=== PATIENT | male | born 1985 ===

== ENCOUNTER 2017-12-08 13:46 | Inpatient (IN) | payer OTHER ==
[2017-12-08 14:43] LABS: URINE BILIRUBIN NEGATIVE (NEGATIVE); URINE BLOOD NEGATIVE (NEGATIVE); URINE CLARITY Clear (Clear); URINE COLOR Yellow (YELLOW); URINE GLUCOSE (UA) NORMAL (Normal); URINE LEUKOCYTE ESTERASE NEG Leu/uL (Negative); URINE PROTEIN NEGATIVE (NEGATIVE); URINE UROBILINOGEN NORMAL mg/dL (0.2-1.0)
[2017-12-08] MEDS ORDERED: Lidocaine 122 MG in Sodium Chloride 0.9% 100 ML IV STA (15:18)
[2017-12-08] MEDS ORDERED: Sodium Chloride 0.9% 1,000 ML IV STA (15:18)
[2017-12-08] MEDS ORDERED: Sodium Chloride 0.9% 1,000 ML IV ONE (15:18)
--- NOTE | 2017-12-08 15:18 | C.PDOC ---
History Of Present Illness 32yo male, comes to ER for evaluation of a new onset right flank and right groin pain x 4 hours. Patient states the pain was initially frontal and now radiates backwards. He also reports associated urinary urgency, hematuria and nausea (now resolved). Patient denies any known history of kidney stones. He took Tylenol prior to arrival with minimal relief. Otherwise, no fever, chills, and offers no other medical complaints. PSH NEG Time Seen by Provider: 12/08/17 15:05 Chief Complaint (Nursing): Male Genitourinary History Per: Patient History/Exam Limitations: no limitations Onset/Duration Of Symptoms: Hrs Current Symptoms Are (Timing): Still Present Quality Of Discomfort: "Pain" Associated Symptoms: Urinary Symptoms Additional History Per: Patient Past Medical History Reviewed: Historical Data, Nursing Documentation, Vital Signs Vital Signs: Last Vital Signs Temp 97.7 F 12/08/17 13:52 Pulse 85 12/08/17 16:07 Resp 22 12/08/17 16:07 BP 105/61 12/08/17 16:07 Pulse Ox 100 12/08/17 17:12 - Medical History PMH: Anxiety Surgical History: No Surg Hx Family History: States: No Known Family Hx - Social History Hx Alcohol Use: No Hx Substance Use: No - Immunization History Hx Tetanus Toxoid Vaccination: Yes Hx Influenza Vaccination: No Hx Pneumococcal Vaccination: No Review Of Systems Except As Marked, All Systems Reviewed And Found Negative. Constitutional: Negative for: Fever, Chills Gastrointestinal: Positive for: Other (right flank pain). Negative for: Nausea , Abdominal Pain Genitourinary: Positive for: Frequency, Hematuria Musculoskeletal: Positive for: Back Pain (right sided lower back) Physical Exam - Physical Exam Appears: Non-toxic, No Acute Distress Skin: Normal Color, Warm, Dry Head: Atraumatic, Normacephalic Eye(s): bilateral: Normal Inspection Chest: Symmetrical Cardiovascular: Rhythm Regular, No Murmur Respiratory: Normal Breath Sounds, No Rales, No Rhonchi, No Wheezing Gastrointestinal/Abdominal: Soft, No Tenderness Back: CVA Tenderness (right sided), No Vertebral Tenderness, No Paraspinal Tenderness Extremity: Normal ROM Neurological/Psych: Oriented x3, Normal Speech, Normal Cognition, Normal Motor, Normal Sensation ED Course And Treatment - Laboratory Results Result Diagrams: 12/08/17 15:26 12/08/17 15:26 O2 Sat by Pulse Oximetry: 100 (RA) Pulse Ox Interpretation: Normal Progress Note: Labs, CT Abdomen/Pelvis ordered. Patient given IV Fluids, IV lidocaine, flomax, and toradol. Progress - Re-Evaluation Re-evaluation Note: 12/08/17 16:[address] TAVARES: +APPY, NONOBSTRUCTING RENAL STONE. 12/08/17 16:32 D/W SURG RES WILL CONSULT 12/08/17 17:12 APPEARS COMFORTABLE NAD. PENDING SURG DISPO - Data Reviewed Data Reviewed: Lab, Diagnostic imaging - Continuity of Care Discussed patient case with:: Patient Discussed pt. case with integrity consultant/specialty: Radiology Disposition Counseled Patient/Family Regarding: Studies Performed, Diagnosis - Disposition Disposition: HOSPITALIZED Disposition Time: 18:30 Condition: STABLE Forms: [facility] (Maltese) - POA Present On Arrival: None - Clinical Impression Clinical Impression: Appendicitis - Scribe Statement The provider has reviewed the documentation as recorded by the Alvina Swanson Provider Attestation: All medical record entries made by the Alvina were at my direction and personally dictated by me. I have reviewed the chart and agree that the record accurately reflects my personal performance of the history, physical exam, medical decision making, and the department course for this patient. I have also personally directed, reviewed, and agree with the discharge instructions and disposition. Decision To Admit - Pt Status Changed To: Hospital Disposition Of: Inpatient - Admit Certification Admit to Inpatient:: After my assessment, the patient will require hospitalization for at least two midnights. This is because of the severity of symptoms shown, intensity of services needed, and/or the medical risk in this patient being treated as an outpatient. - InPatient: Physician Admission Certification: I certify that this patient requires 2 or more midnights of care for the following reason:: SEE NOTE - . Bed Request Type: Regular Admitting Physician: Lyndon Lucas Patient Diagnosis: Appendicitis
[2017-12-08] MEDS ORDERED: Sodium Chloride 0.9% 2,000 ML ONE (15:30)
[2017-12-08 15:32] LABS: BASO % 0.1 % (0.0-2.0); EOS % 0.1 % (0.0-4.0); HEMOGLOBIN 15.4 g/dL (12.0-18.0); LYMPH # 1.2 K/uL (1.0-4.3); LYMPH % 9.9 % (20.0-40.0); MEAN CELL VOLUME 87.8 fL (80.0-94.0); MEAN CORPUSCULAR HEMOGLOBIN 29.3 pg (27.0-31.0); MEAN CORPUSCULAR HGB CONC 33.4 g/dL (33.0-37.0); MEAN PLATELET VOLUME 8.6 fL (7.2-11.7); MONO # 0.5 K/uL (0.0-0.8); MONO % 3.8 % (0.0-10.0); NEUT # 10.7 K/uL (1.8-7.0); NEUT % 86.1 % (50.0-75.0); NRBC % 0.2 % (0.0-2.0); PLATELET COUNT 223 K/uL (130-400); RBC 5.24 Mil/uL (4.40-5.90); RED CELL DISTRIBUTION WIDTH 12.8 % (11.5-14.5); WHITE BLOOD COUNT 12.4 K/uL (4.8-10.8)
[2017-12-08 15:45] LABS: ALB/GLOB RATIO 1.5 (1.0-2.1); ALBUMIN 4.6 g/dL (3.5-5.0); ALT/SGPT 109 U/L (21-72); AST/SGOT 167 U/L (17-59); BLOOD UREA NITROGEN 19 mg/dL (9-20); CALCIUM 9.2 mg/dl (8.6-10.4); GFR AFRICAN-AMERICAN > 60; GFR NON-AFRICAN AMERICAN > 60
[2017-12-08 16:18] LABS: BANDS 3 % (0-2); LYMPHOCYTE 10 % (20-40); MONOCYTE 3 % (0-10); NEUTROPHIL 84 % (50-75); TOTAL CELLS COUNTED 100
[2017-12-08 16:19] LABS: PLATELET ESTIMATE NORMAL (NORMAL)
--- NOTE | 2017-12-08 16:37 | CT ---
Date of service: 12/08/2017 PROCEDURE: CT abdomen pelvis. HISTORY: R FLANK PAIN COMPARISON: None. TECHNIQUE: Contiguous axial images of the abdomen and pelvis. . 2D sagittal and coronal reformats generated. This CT exam was performed using one or more of the following dose reduction techniques: Automated exposure control, adjustment of the mA and/or kV according to patient size, and/or use of iterative reconstruction technique. Radiation dose: Total exam DLP = 568.78 mGy-cm. FINDINGS: LOWER THORAX: Unremarkable. LIVER: Liver exhibits normal size measuring approximately 16 cm in CC dimension. No obvious hepatic mass or collection seen on this noncontrast study. GALLBLADDER AND BILE DUCTS: Gallbladder physiologically distended. No obvious intraluminal gallbladder calculi. PANCREAS: Pancreas appears grossly unremarkable without masses collections or calcifications. SPLEEN: Spleen exhibits normal size and attenuation pattern without mass collection or calcification. ADRENALS: Slightly nodular appearing left adrenal gland. KIDNEYS AND URETERS: There is a 3.9 mm nonobstructing calculus seen in the mid pole collecting system right kidney. No other renal calculi. BLADDER: Urinary bladder is incompletely distended. No obvious intraluminal urinary bladder calculi. REPRODUCTIVE: Unremarkable. APPENDIX: There is an apparent appendicolith at the base of the cecum apparently at ostium of the appendix with dilatation of the appendix measuring up to nearly 11 mm. Findings likely represent an early the acute appendicitis. Clinical correlation with history, physical exam and laboratory values. BOWEL: Evaluation of the bowel limited due to the lack of oral contrast. Stomach is distended with fluid and air. Visualized loops of small bowel exhibit normal contour and caliber. No evidence of acute mechanical small bowel obstruction. . Note is made of mild what appears to represent mild submucosal fatty infiltration within the throughout most of the colon. And Suggesting sequela of chronic inflammation. Clinical correlation recommended. Scattered colonic diverticulosis seen along the sigmoid colon. Made of a radiopaque density along the base of the cecum that could represent a diverticula with the debris PERITONEUM: Unremarkable. No fluid collection. No free air. Small fat containing umbilical hernia. LYMPH NODES: Unremarkable. No enlarged lymph nodes. VASCULATURE: Unremarkable. No aortic aneurysm. BONES: No fracture or destructive lesion. OTHER FINDINGS: None. IMPRESSION: Apparent appendicolith at the base of the cecum apparently at ostium of the appendix with dilatation of the appendix measuring up to nearly 11 mm. Findings most likely represent early acute appendicitis. Clinical correlation with history physical exam and laboratory values. There appears to be submucosal edema throughout the colon suggesting sequela of chronic inflammation. There are also few scattered colonic diverticula along the sigmoid colon however no radiographic evidence of acute diverticulitis. Findings discussed with Dr. Pro at approximately 4:20 p.m. with written down and read back verification. Nonobstructing calculus right kidney as described.
--- NOTE | 2017-12-08 17:04 | US ---
Date of service: 12/08/2017 HISTORY: RUQ PAIN COMPARISON: None. TECHNIQUE: Sonographic evaluation of the right upper quadrant of the abdomen. FINDINGS: LIVER: Measures 17.0 cm in length. Smooth contour however increased echotexture questionably due to fatty infiltration ; rule out other infiltrative hepatic cellular disease process. No obvious mass. No intrahepatic bile duct dilatation. GALLBLADDER: Unremarkable. No gallstones. No pericholecystic fluid collections or sonographic Scott sign COMMON BILE DUCT: Measures 4.0 mm. No stones. No dilatation. PANCREAS: Unremarkable as visualized. No mass. No ductal dilatation. RIGHT KIDNEY: Measures 8.6 x 4.7 x 5.5 cm in length. Normal echogenicity. No mass, or hydronephrosis. . There is a nonobstructing calculus midpole right kidney measuring 3 mm. AORTA: No aneurysmal dilatation. IVC: Unremarkable. OTHER FINDINGS: None . IMPRESSION: No evidence of cholelithiasis. Increased hepatic echotexture ; and questionably due to fatty infiltration however other infiltrative hepatic cellular disease process not excluded. . 3 mm nonobstructing calculus midpole right kidney.
[2017-12-08] MEDS ORDERED: Piperacillin/Tazobact 3.375 gm 100 ML IV STA (17:12)
--- NOTE | 2017-12-08 17:52 | CP.PCM.CON ---
History of Present Illness - History of Present Illness History of Present Illness: General Surgery Consult Note for Dr. Lucas CC: abdominal pain 32M with PMH of anxiety presents to [facility] with umbilical pain that shortly radiated to the RLQ. Patient states noticed generalized periumbilical discomfort that started around 9AM this morning accompanied by nausea and chills. He took peptobismol which did not help. Patient describes the abdominal pain as mild and crampy, which then progressed to diffuse abdominal pain, which further progressed to sharp, severe pain localized to the RLQ. Patient states the pain radiates to the back. Pt reports pain well controlled with toradol received in the ED. However it is aggravated with sudden movement. Pt reports normal bowel movements and flatus. Patient denies fever, chest pain, palpitations, SOB, vomiting, diarrhea, constipation, and any urinary symptoms. PMH: anxiety PSHx: none Meds: Cymbalta Hospitalizations: none Family Hx: Mother: diabetes, Father: HTN Social: denies smoking, alcohol, and drug use Review of Systems - Review of Systems All systems: reviewed and no additional remarkable complaints except - Constitutional Constitutional: Chills. absent: Fever, Headache - Cardiovascular Cardiovascular: absent: Chest Pain, Dyspnea, Dyspnea on Exertion, Edema, Palpitations - Respiratory Respiratory: absent: Cough, Dyspnea, Wheezing - Gastrointestinal Gastrointestinal: Abdominal Pain, Nausea. absent: Constipation, Diarrhea, Fecal Incontinence, Vomiting - Genitourinary Genitourinary: Flank Pain. absent: Change in Urinary Stream, Difficulty Urinating, Dysuria, Urinary Incontinence, Urinary Frequency, Urinary Hesitance - Musculoskeletal Musculoskeletal: Back Pain, Stiffness. absent: Numbness, Tingling - Neurological Neurological: absent: Dizziness, Numbness, Headaches, Sensory Deficit, Tingling - Psychiatric Psychiatric: Anxiety - Endocrine Endocrine: absent: Fatigue, Palpitations Past Patient History - Past Social History Smoking Status: Never Smoked - PSYCHIATRIC Hx Anxiety: Yes Hx Substance Use: No Meds Allergies/Adverse Reactions: Allergies Allergy/AdvReac Type Severity Reaction Status Date / Time No Known Allergies Allergy Verified 12/08/17 13:55 - Medications Medications: Current Medications Piperacillin Sod/Tazobactam Sod (Zosyn 3.375 In Ns 100ml) 100 mls @ 200 mls/hr IV STAT STA PRN Reason: Protocol Stop: 12/08/17 17:41 Physical Exam - Constitutional Appears: Non-toxic, No Acute Distress - Head Exam Head Exam: ATRAUMATIC, NORMOCEPHALIC - Eye Exam Eye Exam: EOMI, Normal appearance - Respiratory Exam Respiratory Exam: NORMAL BREATHING PATTERN. absent: Respiratory Distress - Cardiovascular Exam Cardiovascular Exam: +S1, +S2 - GI/Abdominal Exam GI & Abdominal Exam: Soft, Tenderness. absent: Distended, Firm, Guarding, Hernia, Rebound, Rigid Additional comments: +Rovsigs - Back Exam Back exam: absent: CVA tenderness (L), CVA tenderness (R), paraspinal tenderness , tenderness, vertebral tenderness - Neurological Exam Neurological exam: Alert, Oriented x3 - Psychiatric Exam Psychiatric exam: Normal Affect, Normal Mood - Skin Skin Exam: Dry, Intact, Normal Color Results - Vital Signs Recent Vital Signs: Last Vital Signs Temp 97.7 F 12/08/17 13:52 Pulse 85 12/08/17 16:07 Resp 22 12/08/17 16:07 BP 105/61 12/08/17 16:07 Pulse Ox 100 12/08/17 17:12 - Labs Result Diagrams: 12/08/17 15:26 12/08/17 15:26 Labs: Laboratory Results - last 24 hr 12/08/17 12/08/17 12/08/17 14:31 15:26 15:26 WBC 12.4 H RBC 5.24 Hgb 15.4 Hct 46.0 MCV 87.8 MCH 29.3 MCHC 33.4 RDW 12.8 Plt Count 223 MPV 8.6 Neut % (Auto) 86.1 H Lymph % (Auto) 9.9 L [place] % (Auto) 3.8 Eos % (Auto) 0.1 Baso % (Auto) 0.1 Neut # (Auto) 10.7 H Lymph # (Auto) 1.2 [place] # (Auto) 0.5 Eos # (Auto) 0.0 Baso # (Auto) 0.0 Neutrophils % (Manual) 84 H Band Neutrophils % 3 H Lymphocytes % (Manual) 10 L Monocytes % (Manual) 3 Platelet Estimate Normal RBC Morphology Normal Sodium 139 Potassium 3.9 Chloride 102 Carbon Dioxide 25 Anion Gap 15 BUN 19 Creatinine 0.9 Est GFR ( Amer) > 60 Est GFR (Non-Af Amer) > 60 Random Glucose 133 H Calcium 9.2 Total Bilirubin 0.5 AST 167 H ALT 109 H Alkaline Phosphatase 71 Total Protein 7.7 Albumin 4.6 Globulin 3.1 Albumin/Globulin Ratio 1.5 Urine Color Yellow Urine Clarity Clear Urine pH 5.0 Ur Specific [place] 1.026 Urine Protein Negative Urine Glucose (UA) Normal Urine Ketones Negative Urine Blood Negative Urine Nitrate Negative Urine Bilirubin Negative Urine Urobilinogen Normal Ur Leukocyte Esterase Neg Urine WBC (Auto) < 1 Urine RBC (Auto) 1 - Imaging and Cardiology CT scan - abdomen Status: Image reviewed by me, Report reviewed by me CT scan - pelvis Status: Image reviewed by me, Report reviewed by me Assessment & Plan - Assessment and Plan (Free Text) Assessment: 32M with abdominal pain - CT scan with 11mm appendix with appendicolith, 3.99mm nonobstructing renal calculus, scattered colonic diverticula along the sigmoid colon and submucosal edema throughout the colon - US with 3mm nonobstructing right renal calculus - Vital signs stable - WBC 12.4 Plan: -NPO -IVF -Zosyn -Toradol -OR for appendectomy tomorrow
[2017-12-08] MEDS ORDERED: Piperacillin/Tazobact 3.375 gm 100 ML IVPB ONE (18:18)
--- NOTE | 2017-12-08 18:31 | CP.PCM.HP ---
<Bert Botello - Last Filed: 12/08/17 18:29> History of Present Illness - History of Present Illness History of Present Illness: General Surgery H&P for Dr. Lucas CC: abdominal pain 32M with PMH of anxiety presents to [facility] with umbilical pain that shortly radiated to the RLQ. Patient states noticed generalized periumbilical discomfort that started around 9AM this morning accompanied by nausea and chills. He took peptobismol which did not help. Patient describes the abdominal pain as mild and crampy, which then progressed to diffuse abdominal pain, which further progressed to sharp, severe pain localized to the RLQ. Patient states the pain radiates to the back. Pt reports pain well controlled with toradol received in the ED. However it is aggravated with sudden movement. Pt reports normal bowel movements and flatus. Patient denies fever, chest pain, palpitations, SOB, vomiting, diarrhea, constipation, and any urinary symptoms. PMH: anxiety PSHx: none Meds: Cymbalta Hospitalizations: none Family Hx: Mother: diabetes, Father: HTN Social: denies smoking, alcohol, and drug use Present on Admission - Present on Admission Any Indicators Present on Admission: No Review of Systems - Review of Systems Review of Systems: - Review of Systems All systems: reviewed and no additional remarkable complaints except - Constitutional Constitutional: Chills. absent: Fever, Headache - Cardiovascular Cardiovascular: absent: Chest Pain, Dyspnea, Dyspnea on Exertion, Edema, Palpitations - Respiratory Respiratory: absent: Cough, Dyspnea, Wheezing - Gastrointestinal Gastrointestinal: Abdominal Pain, Nausea. absent: Constipation, Diarrhea, Fecal Incontinence, Vomiting - Genitourinary Genitourinary: Flank Pain. absent: Change in Urinary Stream, Difficulty Urinating, Dysuria, Urinary Incontinence, Urinary Frequency, Urinary Hesitance - Musculoskeletal Musculoskeletal: Back Pain, Stiffness. absent: Numbness, Tingling - Neurological Neurological: absent: Dizziness, Numbness, Headaches, Sensory Deficit, Tingling - Psychiatric Psychiatric: Anxiety - Endocrine Endocrine: absent: Fatigue, Palpitations Past Patient History - Past Social History Smoking Status: Never Smoked - PSYCHIATRIC Hx Anxiety: Yes Hx Substance Use: No Meds Allergies/Adverse Reactions: Allergies Allergy/AdvReac Type Severity Reaction Status Date / Time No Known Allergies Allergy Verified 12/08/17 13:55 Physical Exam - Constitutional Additional comments: - Constitutional Appears: Non-toxic, No Acute Distress - Head Exam Head Exam: ATRAUMATIC, NORMOCEPHALIC - Eye Exam Eye Exam: EOMI, Normal appearance - Respiratory Exam Respiratory Exam: NORMAL BREATHING PATTERN. absent: Respiratory Distress - Cardiovascular Exam Cardiovascular Exam: +S1, +S2 - GI/Abdominal Exam GI & Abdominal Exam: Soft, Tenderness. absent: Distended, Firm, Guarding, Hernia, Rebound, Rigid Additional comments: +Rovsigs - Back Exam Back exam: absent: CVA tenderness (L), CVA tenderness (R), paraspinal tenderness , tenderness, vertebral tenderness - Neurological Exam Neurological exam: Alert, Oriented x3 - Psychiatric Exam Psychiatric exam: Normal Affect, Normal Mood - Skin Skin Exam: Dry, Intact, Normal Color Results - Vital Signs Recent Vital Signs: Last Vital Signs Temp 97.7 F 12/08/17 13:52 Pulse 85 12/08/17 16:07 Resp 22 12/08/17 16:07 BP 105/61 12/08/17 16:07 Pulse Ox 100 12/08/17 17:12 - Labs Result Diagrams: 12/08/17 15:26 12/08/17 15:26 Labs: Laboratory Results - last 24 hr 12/08/17 12/08/17 12/08/17 14:31 15:26 15:26 WBC 12.4 H RBC 5.24 Hgb 15.4 Hct 46.0 MCV 87.8 MCH 29.3 MCHC 33.4 RDW 12.8 Plt Count 223 MPV 8.6 Neut % (Auto) 86.1 H Lymph % (Auto) 9.9 L [place] % (Auto) 3.8 Eos % (Auto) 0.1 Baso % (Auto) 0.1 Neut # (Auto) 10.7 H Lymph # (Auto) 1.2 [place] # (Auto) 0.5 Eos # (Auto) 0.0 Baso # (Auto) 0.0 Neutrophils % (Manual) 84 H Band Neutrophils % 3 H Lymphocytes % (Manual) 10 L Monocytes % (Manual) 3 Platelet Estimate Normal RBC Morphology Normal Sodium 139 Potassium 3.9 Chloride 102 Carbon Dioxide 25 Anion Gap 15 BUN 19 Creatinine 0.9 Est GFR ( Amer) > 60 Est GFR (Non-Af Amer) > 60 Random Glucose 133 H Calcium 9.2 Total Bilirubin 0.5 AST 167 H ALT 109 H Alkaline Phosphatase 71 Total Protein 7.7 Albumin 4.6 Globulin 3.1 Albumin/Globulin Ratio 1.5 Urine Color Yellow Urine Clarity Clear Urine pH 5.0 Ur Specific [place] 1.026 Urine Protein Negative Urine Glucose (UA) Normal Urine Ketones Negative Urine Blood Negative Urine Nitrate Negative Urine Bilirubin Negative Urine Urobilinogen Normal Ur Leukocyte Esterase Neg Urine WBC (Auto) < 1 Urine RBC (Auto) 1 - Imaging and Cardiology CT scan - abdomen Status: Image reviewed by me, Report reviewed by me CT scan - pelvis Status: Image reviewed by me, Report reviewed by me US - abdomen Status: Image reviewed by me, Report reviewed by me Assessment & Plan - Assessment and Plan (Free Text) Assessment: 32M with abdominal pain - CT scan with 11mm appendix with appendicolith, 3.99mm nonobstructing renal calculus, scattered colonic diverticula along the sigmoid colon and submucosal edema throughout the colon - US with 3mm nonobstructing right renal calculus - Vital signs stable - WBC 12.4 Plan: -Admit -NPO -IVF -Zosyn -Toradol -OR for appendectomy tomorrow D/W Dr. Lance Botello PGY3 <Lyndon Lucas - Last Filed: 12/09/17 23:05> Results - Vital Signs Recent Vital Signs: Last Vital Signs Temp 99.0 F 12/09/17 16:00 Pulse 93 H 12/09/17 16:00 Resp 20 12/09/17 16:00 BP 152/80 H 12/09/17 16:00 Pulse Ox 95 12/09/17 16:00 - Labs Result Diagrams: 12/09/17 07:00 12/09/17 07:00 Labs: Laboratory Results - last 24 hr 12/09/17 12/09/17 07:00 07:00 WBC 11.7 H RBC 4.72 Hgb 14.2 Hct 41.3 MCV 87.5 MCH 30.2 MCHC 34.5 RDW 12.8 Plt Count 165 MPV 8.2 Neut % (Auto) 81.0 H Lymph % (Auto) 12.4 L [place] % (Auto) 6.3 Eos % (Auto) 0.1 Baso % (Auto) 0.2 Neut # (Auto) 9.4 H Lymph # (Auto) 1.4 [place] # (Auto) 0.7 Eos # (Auto) 0.0 Baso # (Auto) 0.0 Sodium 139 Potassium 3.9 Chloride 104 Carbon Dioxide 26 Anion Gap 12 BUN 10 Creatinine 1.0 Est GFR ( Amer) > 60 Est GFR (Non-Af Amer) > 60 Random Glucose 119 H Calcium 8.6 Attending/Attestation - Attestation I have personally seen and examined this patient.: Yes I have fully participated in the care of the patient.: Yes I have reviewed all pertinent clinical information: Yes Notes (Text): Pt was seen and examined at bedside Agree with above note and assessment Pt with RLQ pain and tenderness Labs and radiology reviewed Ass: Acute Appendicitis Plan : Lap Appendectomy Consent EKG, CXR NPO, IVF IV Antibiotics Plan d.w pt in detail. Risk and benefit explained in detail.
[2017-12-08] MEDS ORDERED: Sodium Chloride 0.9% 1,000 ML ONE (19:14)
[2017-12-08] MEDS: Sodium Chloride 0.9% 1,000 ML IV SCH (19:16)
[2017-12-08 19:23] LABS: PROTHROMBIN TIME 12.2 SECONDS (9.7-12.2)
[2017-12-08 19:47] LABS: INR 1.11 (0.92-1.08)
[2017-12-09] MEDS: Piperacillin/Tazobact 3.375 GM in Sodium Chloride 100 ML IVPB SCH ×4 (00:14→18:10)
[2017-12-09] MEDS: Sodium Chloride 0.9% 1,000 ML IV SCH ×5 (02:20→20:56)
[2017-12-09 07:05] LABS: BASO % 0.2 % (0.0-2.0); EOS % 0.1 % (0.0-4.0); HEMOGLOBIN 14.2 g/dL (12.0-18.0); LYMPH # 1.4 K/uL (1.0-4.3); LYMPH % 12.4 % (20.0-40.0); MEAN CELL VOLUME 87.5 fL (80.0-94.0); MEAN CORPUSCULAR HEMOGLOBIN 30.2 pg (27.0-31.0); MEAN CORPUSCULAR HGB CONC 34.5 g/dL (33.0-37.0); MEAN PLATELET VOLUME 8.2 fL (7.2-11.7); MONO # 0.7 K/uL (0.0-0.8); MONO % 6.3 % (0.0-10.0); NEUT # 9.4 K/uL (1.8-7.0); RBC 4.72 Mil/uL (4.40-5.90); RED CELL DISTRIBUTION WIDTH 12.8 % (11.5-14.5); WHITE BLOOD COUNT 11.7 K/uL (4.8-10.8)
[2017-12-09 07:37] LABS: BLOOD UREA NITROGEN 10 mg/dL (9-20); CALCIUM 8.6 mg/dl (8.6-10.4); GFR AFRICAN-AMERICAN > 60; GFR NON-AFRICAN AMERICAN > 60
--- NOTE | 2017-12-09 09:11 | RAD ---
Chest x-ray single frontal view History: Preoperative evaluation. Comparison: None available. Findings: No focal infiltrate or effusion. Heart size within normal limits. Impression: No focal infiltrate or effusion.
[2017-12-09] MEDS ORDERED: Midazolam 2 MG/2 ML VIAL ONE (12:06)
[2017-12-09] MEDS ORDERED: Propofol 10 mg/ml Inj (20 ML) ONE (12:08)
[2017-12-09] MEDS ORDERED: Rocuronium 10 mg/ml (5 ml) ONE (12:20)
[2017-12-09] MEDS ORDERED: Succinylcholine Chloride 20 mg/ml Syr (5 ml) IV ONE (12:20)
[2017-12-09] MEDS ORDERED: Lidocaine/Epinephrine 1% 1:100000 10 ML IJ ONE (12:21)
[2017-12-09] MEDS ORDERED: Piperacillin/Tazobact 3.375 gm 100 ML IVPB ONE (12:21)
[2017-12-09] MEDS ORDERED: Bupivacaine 0.25% 20 ML INJ IJ ONE (12:21)
[2017-12-09] MEDS ORDERED: Neostigmine Methylsulfate 3mg/3ml Syringe IV ONE (13:00)
[2017-12-09] MEDS ORDERED: HYDROmorphone 0.5 mg/0.5 ml ISec IVP PRN (13:39)
--- NOTE | 2017-12-09 13:40 | PCM.SURG1 ---
Surgeon's Initial Post Op Note - Surgeon's Notes Surgeon: Dr. Lucas Pilot Fuel Engineer: Jayjay Montilla PGY1 Type of Anesthesia: General Endo, Local Pre-Operative Diagnosis: Acute appendicitis Operative Findings: Acute appendicitis, pelvic abscess Post-Operative Diagnosis: Acute appendicitis with pelvic abscess Operation Performed: Laparascopic appendectomy with partial cecectomy secondary to fecolith and drainage of pelvic abscess Specimen/Specimens Removed: appendix, cecum Estimated Blood Loss: EBL {In ML}: 20 Blood Products Given: N/A Drains Used: No Drains Date of Surgery/Procedure: 12/09/17 Time of Surgery/Procedure: 13:39
[2017-12-09 16:39] VITALS: RESP 20
[2017-12-10] MEDS: Piperacillin/Tazobact 3.375 GM in Sodium Chloride 100 ML IVPB SCH ×4 (00:22→17:31)
--- NOTE | 2017-12-10 03:07 | OP ---
PROCEDURE DATE: 12/09/2017 PREOPERATIVE DIAGNOSIS: Acute appendicitis. POSTOPERATIVE DIAGNOSES: 1. Acute suppurative appendicitis with appendicolith at the base of the appendix and cecal junction. 2. Pelvic abscess. PROCEDURES DONE: 1. Laparoscopic appendectomy. 2. Laparoscopic partial cecectomy. 3. Laparoscopic drainage of pelvic abscess and periappendicular abscess. SURGEON: Lyndon Lucas M.D. ASSISTANTS: ENOC Pizarro; and Awais, PGY-1 resident. TYPE OF ANESTHESIA: General endotracheal tube anesthesia. ESTIMATED BLOOD LOSS: Around 20 mL. DRAINS: None. COMPLICATIONS: None. INTRAOPERATIVE FINDINGS: The patient had acute suppurative appendicitis with phlegmon at the base of the appendix, and there was a large pelvic abscess as well as a periappendicular abscess identified. DESCRIPTION OF PROCEDURE: On intraoperative steps, this is a 32-year-old male who was diagnosed with acute appendicitis with leukocytosis, and the patient was consented for laparoscopic appendectomy, possible open, brought to the OR, placed supine on the operating table. After induction of the anesthesia, the abdomen was prepped and draped in the usual sterile fashion. The supraumbilical transverse incision was made after incising the skin, subcutaneous tissue, and the fascia. The Jacob port was placed. Pneumo was created. A 5 mm port was placed in the suprapubic region. A 12 mm port was placed in the left lower quadrant after the grasper and dissector were introduced, and appendix was firmly adhesed to the lateral pelvic wall and that was dissected, and the patient also had a large pelvic abscess that was drained. Suction irrigation on the pelvic and periappendicular abscess was done. After complete drainage, the mesoappendix was resected with a harmonic scalpel and the base of the appendix was dissected with DELVIS. The staple line appeared to be necrosed and now the cecum was mobilized, and part of the cecum was excised up to the healthy margin and the cecum was sent off the table for pathology. After proper hemostasis, the suction irrigation of the pelvic and the periappendicular area was done. After proper hemostasis, all the port was taken out under vision. Pneumo was deflated. The umbilical port site was closed in two layers, the fascia with 0 Vicryl interrupted sutures, skin with 4-0 Monocryl, and dry sterile dressing was applied. The patient tolerated the procedure well. Count of instrument and gauze was correct. There were no apparent complications. The patient was extubated in the OR, sent to the postanesthesia care unit in stable condition. Lyndon Lucas MD
[2017-12-10] MEDS: Sodium Chloride 0.9% 1,000 ML IV SCH ×4 (03:46→17:34)
[2017-12-10 07:49] LABS: MEAN CELL VOLUME 87.8 fL (80.0-94.0); MEAN CORPUSCULAR HEMOGLOBIN 30.5 pg (27.0-31.0); MEAN CORPUSCULAR HGB CONC 34.7 g/dL (33.0-37.0); MEAN PLATELET VOLUME 8.4 fL (7.2-11.7); RBC 4.59 Mil/uL (4.40-5.90); RED CELL DISTRIBUTION WIDTH 12.9 % (11.5-14.5); WHITE BLOOD COUNT 9.3 K/uL (4.8-10.8)
[2017-12-10 07:55] LABS: BLOOD UREA NITROGEN 9 mg/dL (9-20); CALCIUM 8.2 mg/dl (8.6-10.4); GFR AFRICAN-AMERICAN > 60; GFR NON-AFRICAN AMERICAN > 60
[2017-12-10] MEDS: Enoxaparin 40 mg Syringe SC SCH (10:22)
[2017-12-10] MEDS ORDERED: Oxycodone/Acetaminophen 5/325 mg Tab PO PRN (11:37)
--- NOTE | 2017-12-10 11:42 | CP.PCM.PN ---
Subjective - Date & Time of Evaluation Date of Evaluation: 12/10/17 Time of Evaluation: 11:39 - Subjective Subjective: General Surgery Progress Note for Dr. Lucas 32M seen and evaluated this morning at bedside. Patient pain well controlled. He tolerated his diet. No acute events overnight. No BM but passing flatus. Is ambulating and using IS. Denies f/c, n/v/d, SOB, CP, or urinary symptoms. Objective - Vital Signs/Intake and Output Vital Signs (last 24 hours): Temp Pulse Resp BP Pulse Ox 98.6 F 96 H 20 131/73 95 12/10/17 08:02 12/10/17 08:02 12/10/17 08:02 12/10/17 08:02 12/10/17 08:02 Intake and Output: 12/10/17 12/10/17 06:59 18:59 Intake Total 3050 Balance 3050 - Medications Medications: Current Medications Enoxaparin Sodium (Lovenox) 40 mg SC DAILY [facility] Last Admin: 12/10/17 10:22 Dose: 40 mg Piperacillin Sod/Tazobactam (Sod 3.375 gm/ Sodium Chloride) 100 mls @ 200 mls/ hr IVPB Q6H [facility] PRN Reason: Protocol Last Admin: 12/10/17 05:41 Dose: 200 mls/hr Sodium Chloride (Sodium Chloride 0.9%) 1,000 mls @ 75 mls/hr IV .[id number] [facility] Ondansetron HCl (Zofran Inj) 4 mg IVP Q6 PRN PRN Reason: Nausea/Vomiting Oxycodone/Acetaminophen (Percocet 5/325 Mg Tab) 1 tab PO Q4H PRN PRN Reason: Pain, moderate (4-7) Stop: 12/13/17 11:38 Oxycodone/Acetaminophen (Percocet 5/325 Mg Tab) 2 tab PO Q4H PRN PRN Reason: Pain, severe (8-10) Stop: 12/13/17 11:38 - Labs Labs: 12/10/17 07:34 12/10/17 07:34 PT 12.2 SECONDS (9.7-12.2) 12/08/17 19:03 INR 1.11 (0.92-1.08) H 12/08/17 19:03 APTT 29 SECONDS (21-34) 12/08/17 19:03 - Constitutional Appears: Well, Non-toxic, No Acute Distress - Head Exam Head Exam: ATRAUMATIC, NORMAL INSPECTION, NORMOCEPHALIC - Eye Exam Eye Exam: EOMI, Normal appearance - ENT Exam ENT Exam: Mucous Membranes Moist, Normal Exam - Respiratory Exam Respiratory Exam: Clear to Ausculation Bilateral, NORMAL BREATHING PATTERN - Cardiovascular Exam Cardiovascular Exam: REGULAR RHYTHM, +S1, +S2. absent: Murmur - GI/Abdominal Exam GI & Abdominal Exam: Soft, Tenderness, Normal Bowel Sounds. absent: Distended Additional comments: dressings c/d/i - Rectal Exam Rectal Exam: Deferred - Neurological Exam Neurological Exam: Alert, Awake, Oriented x3 - Psychiatric Exam Psychiatric exam: Normal Affect, Normal Mood - Skin Skin Exam: Dry, Intact, Normal Color, Warm Assessment and Plan - Assessment and Plan (Free Text) Assessment: 32M s/p lap appy POD1 Plan: c/w pain control c/w IV Abx monitor bowel function Regular diet encourage ambulation and IS use AM labs DC planning further recs per Dr. Lance Montilla PGY1
[2017-12-10] MEDS: Oxycodone/Acetaminophen 5/325 mg Tab PO PRN ×2 (17:20→23:35)
[2017-12-11] MEDS: Piperacillin/Tazobact 3.375 GM in Sodium Chloride 100 ML IVPB SCH ×3 (00:09→11:46)
[2017-12-11 01:23] VITALS: O2SAT 96
--- NOTE | 2017-12-11 07:45 | CP.PCM.PN ---
Objective - Vital Signs/Intake and Output Vital Signs (last 24 hours): Temp Pulse Resp BP Pulse Ox 98.5 F 95 H 20 118/74 96 12/11/17 01:00 12/11/17 01:00 12/11/17 01:00 12/11/17 01:00 12/11/17 01:00 Intake and Output: 12/11/17 12/11/17 06:59 18:59 Intake Total 1520 Balance 1520 - Medications Medications: Current Medications Enoxaparin Sodium (Lovenox) 40 mg SC DAILY [facility] Last Admin: 12/10/17 10:22 Dose: 40 mg Piperacillin Sod/Tazobactam (Sod 3.375 gm/ Sodium Chloride) 100 mls @ 200 mls/ hr IVPB Q6H [facility] PRN Reason: Protocol Last Admin: 12/11/17 05:34 Dose: 200 mls/hr Ondansetron HCl (Zofran Inj) 4 mg IVP Q6 PRN PRN Reason: Nausea/Vomiting Oxycodone/Acetaminophen (Percocet 5/325 Mg Tab) 1 tab PO Q4H PRN PRN Reason: Pain, moderate (4-7) Stop: 12/13/17 11:38 Last Admin: 12/10/17 23:35 Dose: 1 tab Oxycodone/Acetaminophen (Percocet 5/325 Mg Tab) 2 tab PO Q4H PRN PRN Reason: Pain, severe (8-10) Stop: 12/13/17 11:38 - Labs Labs: 12/10/17 07:34 12/10/17 07:34 PT 12.2 SECONDS (9.7-12.2) 12/08/17 19:03 INR 1.11 (0.92-1.08) H 12/08/17 19:03 APTT 29 SECONDS (21-34) 12/08/17 19:03
[2017-12-11 08:26] LABS: MEAN CELL VOLUME 87.3 fL (80.0-94.0); MEAN CORPUSCULAR HEMOGLOBIN 30.5 pg (27.0-31.0); MEAN CORPUSCULAR HGB CONC 34.9 g/dL (33.0-37.0); MEAN PLATELET VOLUME 8.5 fL (7.2-11.7); RBC 4.6 Mil/uL (4.40-5.90); RED CELL DISTRIBUTION WIDTH 12.5 % (11.5-14.5); WHITE BLOOD COUNT 6.2 K/uL (4.8-10.8)
[2017-12-11 08:40] LABS: BLOOD UREA NITROGEN 14 mg/dL (9-20); CALCIUM 8.8 mg/dl (8.6-10.4); GFR AFRICAN-AMERICAN > 60; GFR NON-AFRICAN AMERICAN > 60
[2017-12-11] MEDS: Enoxaparin 40 mg Syringe SC SCH (10:45)
[2017-12-11] MEDS ORDERED: Pneumococcal 23-Valent Vaccine IM ONE (12:56)
[2017-12-11] MEDS: Oxycodone/Acetaminophen 5/325 mg Tab PO PRN (13:26)
--- NOTE | 2017-12-11 13:40 | CP.PCM.DIS ---
Provider - Provider Date of Admission: 12/08/17 18:30 Attending physician: Lyndon Lucas MD Time Spent in preparation of Discharge (in minutes): 45 Diagnosis - Discharge Diagnosis (1) Appendicitis Status: Acute Hospital Course - Lab Results Lab Results: Most Recent Lab Values WBC 6.2 K/uL (4.8-10.8) 12/11/17 08:04 RBC 4.60 Mil/uL (4.40-5.90) 12/11/17 08:04 Hgb 14.0 g/dL (12.0-18.0) 12/11/17 08:04 Hct 40.1 % (35.0-51.0) 12/11/17 08:04 MCV 87.3 fL (80.0-94.0) 12/11/17 08:04 MCH 30.5 pg (27.0-31.0) 12/11/17 08:04 MCHC 34.9 g/dL (33.0-37.0) 12/11/17 08:04 RDW 12.5 % (11.5-14.5) 12/11/17 08:04 Plt Count 178 K/uL (130-400) 12/11/17 08:04 MPV 8.5 fL (7.2-11.7) 12/11/17 08:04 Neut % (Auto) 81.0 % (50.0-75.0) H 12/09/17 07:00 Lymph % (Auto) 12.4 % (20.0-40.0) L 12/09/17 07:00 Andrew % (Auto) 6.3 % (0.0-10.0) 12/09/17 07:00 Eos % (Auto) 0.1 % (0.0-4.0) 12/09/17 07:00 Baso % (Auto) 0.2 % (0.0-2.0) 12/09/17 07:00 Neut # (Auto) 9.4 K/uL (1.8-7.0) H 12/09/17 07:00 Lymph # (Auto) 1.4 K/uL (1.0-4.3) 12/09/17 07:00 Andrew # (Auto) 0.7 K/uL (0.0-0.8) 12/09/17 07:00 Eos # (Auto) 0.0 K/uL (0.0-0.7) 12/09/17 07:00 Baso # (Auto) 0.0 K/uL (0.0-0.2) 12/09/17 07:00 Neutrophils % (Manual) 84 % (50-75) H 12/08/17 15:26 Band Neutrophils % 3 % (0-2) H 12/08/17 15:26 Lymphocytes % (Manual) 10 % (20-40) L 12/08/17 15:26 Monocytes % (Manual) 3 % (0-10) 12/08/17 15:26 Platelet Estimate Normal (NORMAL) 12/08/17 15:26 RBC Morphology Normal 12/08/17 15:26 PT 12.2 SECONDS (9.7-12.2) 12/08/17 19:03 INR 1.11 (0.92-1.08) H 12/08/17 19:03 APTT 29 SECONDS (21-34) 12/08/17 19:03 Sodium 142 mmol/L (132-148) 12/11/17 08:04 Potassium 3.5 mmol/L (3.6-5.2) L 12/11/17 08:04 Chloride 104 mmol/L (98-107) 12/11/17 08:04 Carbon Dioxide 28 mmol/L (22-30) 12/11/17 08:04 Anion Gap 14 (10-20) 12/11/17 08:04 BUN 14 mg/dL (9-20) 12/11/17 08:04 Creatinine 1.1 mg/dL (0.8-1.5) 12/11/17 08:04 Est GFR ( Amer) > 60 12/11/17 08:04 Est GFR (Non-Af Amer) > 60 12/11/17 08:04 Random Glucose 96 mg/dL (75-110) 12/11/17 08:04 Calcium 8.8 mg/dl (8.6-10.4) 12/11/17 08:04 Total Bilirubin 0.5 mg/dL (0.2-1.3) 12/08/17 15:26 AST 167 U/L (17-59) H 12/08/17 15:26 ALT 109 U/L (21-72) H 12/08/17 15:26 Alkaline Phosphatase 71 U/L (38-126) 12/08/17 15:26 Total Protein 7.7 g/dL (6.3-8.3) 12/08/17 15:26 Albumin 4.6 g/dL (3.5-5.0) 12/08/17 15:26 Globulin 3.1 gm/dL (2.2-3.9) 12/08/17 15:26 Albumin/Globulin Ratio 1.5 (1.0-2.1) 12/08/17 15:26 Urine Color Yellow (YELLOW) 12/08/17 14:31 Urine Clarity Clear (Clear) 12/08/17 14:31 Urine pH 5.0 (5.0-8.0) 12/08/17 14:31 Ur Specific [place] 1.026 (1.003-1.030) 12/08/17 14:31 Urine Protein Negative mg/dL (NEGATIVE) 12/08/17 14:31 Urine Glucose (UA) Normal mg/dL (Normal) 12/08/17 14:31 Urine Ketones Negative mg/dL (NEGATIVE) 12/08/17 14:31 Urine Blood Negative (NEGATIVE) 12/08/17 14:31 Urine Nitrate Negative (NEGATIVE) 12/08/17 14:31 Urine Bilirubin Negative (NEGATIVE) 12/08/17 14:31 Urine Urobilinogen Normal mg/dL (0.2-1.0) 12/08/17 14:31 Ur Leukocyte Esterase Neg Amanda/uL (Negative) 12/08/17 14:31 Urine WBC (Auto) < 1 /hpf (0-5) 12/08/17 14:31 Urine RBC (Auto) 1 /hpf (0-3) 12/08/17 14:31 - Hospital Course Hospital Course: 32M with PMH of anxiety presents to [facility] with umbilical pain that shortly radiated to the RLQ. Patient states noticed generalized periumbilical discomfort that started around 9AM this morning accompanied by nausea and chills. He took pepto bismol which did not help. Patient describes the abdominal pain as mild and crampy, which then progressed to diffuse abdominal pain, which further progressed to sharp, severe pain localized to the RLQ. Patient states the pain radiates to the back. Pt reports pain well controlled with toradol received in the ED. However it is aggravated with sudden movement. Pt reports normal bowel movements and flatus. Patient denies fever, chest pain, palpitations, SOB, vomiting, diarrhea, constipation, and any urinary symptoms. Patient was admitted for acute appendicitis. CT scan was performed and confirmed appendicitis. He was started on IV fluids and IV antibiotics. Patient was made NPO in preparation for OR. The next day, patient was take to OR for laparoscopic appendectomy. Patient tolerated procedure well without complications. Patient stayed until 12/11 for IV antibiotics and pain control. Patient was deemed stable for discharge on 12/[address] Lucas. Patient instructed to take Levaquin for 5 days. He is to follow up as outpatient with Dr. Lucas within 1-2 weeks. (This is a summary of the hospital course. Please refer to EMR for more details. ) - Date & Time of H&P Date of H&P: 12/08/17 Time of H&P: 15:00 Discharge Exam - Head Exam Head Exam: ATRAUMATIC, NORMAL INSPECTION, NORMOCEPHALIC - Eye Exam Eye Exam: EOMI, Normal appearance Pupil Exam: PERRL - ENT Exam ENT Exam: Mucous Membranes Moist - Respiratory Exam Respiratory Exam: NORMAL BREATHING PATTERN - Cardiovascular Exam Cardiovascular Exam: REGULAR RHYTHM - GI/Abdominal Exam GI & Abdominal Exam: Soft. absent: Distended, Firm, Guarding, Rebound, Rigid, Tenderness - Extremities Exam Extremities exam: normal capillary refill, pedal pulses present - Back Exam Back exam: absent: CVA tenderness (L), CVA tenderness (R) - Neurological Exam Neurological exam: Alert, CN II-XII Intact, Normal Gait, Oriented x3 - Psychiatric Exam Psychiatric exam: Normal Affect, Normal Mood - Skin Skin Exam: Dry, Intact, Normal Color, Warm Discharge Plan - Discharge Medications Prescriptions: Levofloxacin [Levaquin] 750 mg PO DAILY #5 tablet - Follow Up Plan Condition: STABLE Disposition: HOME/ ROUTINE Instructions: Appendectomy, Open Surgery (DC) Additional Instructions: Take levaquin, perocet and colace as prescribed Keep bandage on for 5 days No heavy lifting for 4 weeks Patient to sponge until follow up with Dr. Lucas Keep surgical areas clean and dry Follow up with Dr. Lucas within 1-2 weeks Referrals: Lyndon Lucas MD [Staff Provider] -
[2017-12-11] MEDS ORDERED: Potassium Chloride 20 mEq ER Tab PO ONE (14:06)
[2017-12-11 16:01] VITALS: BP 110/66; PULSE 93; TEMP 98.3
== END 2017-12-11 16:34 | disposition home or self-care (01) | DRG 331 ==
LOC: C.ER 13:46 → C.9E 18:30 → C.3T 19:44
PROVIDERS: ADMIT Surgery Surgical Critical Care; ATTEND Surgery Surgical Critical Care
PROC: 0DBH4ZZ Excision of Cecum, Percutaneous Endoscopic Approach (ICD-10-PCS; 2017-12-09)
PROC: 0DTJ4ZZ Resection of Appendix, Percutaneous Endoscopic Approach (ICD-10-PCS; principal; 2017-12-09 11:00)
DX: K35.3 Acute appendicitis with localized peritonitis (principal); K38.1 Appendicular concretions; K57.30 Diverticulosis of large intestine without perforation or abscess without bleeding